=== PATIENT | female | born 1985 | race Caucasian/White ===

== ENCOUNTER → 2022-02-17 | Outpatient (CLI) | payer OTHER ==
[~2022-02-17] MED LIST: ACET325 PO; ACET500 PO; ALBU90OI6; ALBU90OI6 INH; ALPR.5 PO; BCP'S; BIRTH CONTROL PILL; CIPR500 PO; CRUTCH4 USE; DIAZ5 PO; DIPATR PO; HYDACE5; HYDACE5 PO; HYDR1TAB94 PO; IBUP200 PO; IBUP800 PO; METO10 PO; NAPR500; NAPR500 PO; OMEP20ER PO; OMEP40CA12 PO; ONDA4 PO; ONDA4ODT MM; OXYACE5T PO; PENVK250 PO; PENVK500 PO; PROM25 PO; PYRIDIUM; Prozac20 MG; RANI150 PO; RXHYDACE PO; RXPROM25 PO; SULTRIDS PO; TOBR.3OPSO OP; YAZ; Yasmin 28 Tabl1 EACH PO; [UNRECOGNIZED DRUG - OTHER] PO; [UNRECOGNIZED DRUG - REMARK]
== END ==
LOC: LAB 15:10 → LAB SHORT 15:10
DX: N39.0 Urinary tract infection, site not specified (principal)
CPT/HCPCS: 87086

== ENCOUNTER → 2022-03-04 | Outpatient (CLI) | payer OTHER ==
[2022-03-07 00:11] LABS: CHLAMYDIA TRACHOMATIS, NAA Negative (Negative)
== END ==
LOC: LAB 14:30 → LAB SHORT 14:30
PROVIDERS: Student in an Organized Health Care Education/Training Program
DX: Z12.4 Encounter for screening for malignant neoplasm of cervix (principal); Z20.2 Contact with and (suspected) exposure to infections with a predominantly sexual mode of transmission
CPT/HCPCS: 87491; 87591; G0123

== ENCOUNTER → 2022-06-03 | Outpatient (CLI) | payer OTHER ==
[2022-06-03 11:55] LABS: BASOPHILS ABSOLUTE AUTO 0.02 K/mm3 (0.00-0.23); BASOPHILS PERCENT AUTO 0 % (0-2); EOSINOPHILS PERCENT AUTO 0 % (0-6); Hemoglobin 14.7 g/dL (11.5-16.0); IMMATURE GRAN ABSOLUTE AUTO 0.02 K/mm3 (0.00-0.10); IMMATURE GRAN PERCENT AUTO 0 % (0-1); LYMPHOCYTES ABSOLUTE AUTO 1.26 K/mm3 (0.84-5.20); LYMPHOCYTES PERCENT AUTO 16 % (21-46); MONOCYTES ABSOLUTE AUTO 0.44 K/mm3 (0.16-1.47); MONOCYTES PERCENT AUTO 6 % (4-13); Mean Corpuscular HGB 32.3 pg (26.0-34.0); Mean Corpuscular Volume 92 fL (80-100); Mean Platelet Volume 9.8 fL (9.1-12.4); NEUTROPHILS ABSOLUTE AUTO 5.95 K/mm3 (1.96-9.15); NEUTROPHILS PERCENT AUTO 77 % (41-73); Platelet Count 352 K/mm3 (150-400); RDW Standard Deviation 43.8 fL (35.1-46.3); Red Blood Cell Count 4.55 M/mm3 (3.80-5.20); White Blood Cell Count 7.69 K/mm3 (4.00-11.30)
[2022-06-03 12:10] LABS: Albumin, Blood 3.9 g/dL (3.4-5.0); Albumin/Globulin Ratio 0.9 (0.8-1.8); Bilirubin, Total 0.3 mg/dL (0.1-1.0); Bun/Creatinine Ratio 13.9 (12.0-20.0); Calcium, Blood 8.7 mg/dL (8.5-10.1); Creatinine, Blood 0.72 mg/dL (0.40-1.00); Globulin, Blood 4.4 g/dL (2.2-4.0); Potassium, Blood 3.7 mmol/L (3.5-5.5); Total Protein, Blood 8.3 g/dL (6.4-8.2)
== END | disposition home or self-care (01) ==
LOC: LAB 11:50 → LAB SHORT 11:50
PROVIDERS: Physician Assistant Medical
DX: R11.2 Nausea with vomiting, unspecified (principal); R19.7 Diarrhea, unspecified
CPT/HCPCS: 80053; 85025

== ENCOUNTER 2024-04-30 11:10 | Day surgery (SDC) | payer OTHER ==
[~2024-04-30] VITALS: Ht 170.2 cm; Wt 102.2 kg
[~2024-04-30 11:10] MED LIST changes: +Adipex-P37.5 M1 PO; +FAMO20 PO; +LOPERAMIDE212 PO; +PROM12.5S PR; +QUET100 PO
[2024-04-30] MEDS ORDERED: Lactated Ringer's 1,000 ML IV SCH (11:30)
[2024-04-30 12:03] VITALS: BP 124/85
--- NOTE | 2024-04-30 12:46 | NUR ---
Ambulatory in Day SurgeryPre-Op teaching done. Pt verbalizes understanding. History, Chart, Medications and Allergies reviewed before start of procedure.Patient States Post-Procedure ride home has been arranged. PT HAD WATER AT 1115 AND UNABLE TO VOID FOR PREG.TEST. PT VERBALLY AND EMOTIONALLY UPSET.
--- NOTE | 2024-04-30 12:47 | NUR ---
SERUM HCG DRAWN W/ IV START.
[2024-04-30] MEDS ORDERED: propofoL 40 ML IV ONE (13:24)
[2024-04-30] MEDS ORDERED: propofoL 20 ML IV ONE (13:33)
--- NOTE | 2024-04-30 13:52 | NUR ---
04/30/24 [address] ARAYA; SEE ANESTHESIA RECORDS.
[2024-04-30 13:53] VITALS: BP 129/71
--- NOTE | 2024-04-30 16:34 | NUR ---
Discharge instructions reviewed with patient. Patient verbalizes understanding. Copy given to patient to take home. ALL BELONGINGS RETURNED TO PT INCLUDING CELL PHONE. SPOUSE HAD PURSE. PT TOLERATED WATER WELL. NO PAIN OR NAUSEA REPORTED. PT REPORTS "BEING READY TO GO HOME". Discharged via wheelchair to private car for ride home WITH SPOUSE.
== END 2024-04-30 23:00 | disposition home or self-care (01) ==
LOC: ORSCMMR 11:10 → ORD 12:45 → ORSCMMR 23:00
PROVIDERS: Surgery
PROC: 0DB98ZX Excision of Duodenum, Via Natural or Artificial Opening Endoscopic, Diagnostic (ICD-10-PCS; principal; 2024-04-30 12:45)
PROC: 0DB78ZX Excision of Stomach, Pylorus, Via Natural or Artificial Opening Endoscopic, Diagnostic (ICD-10-PCS; principal; 2024-04-30 12:45)
DX: K21.9 Gastro-esophageal reflux disease without esophagitis (principal); K44.9 Diaphragmatic hernia without obstruction or gangrene; J45.909 Unspecified asthma, uncomplicated; F17.210 Nicotine dependence, cigarettes, uncomplicated; E66.9 Obesity, unspecified; Z68.35 Body mass index [BMI] 35.0-35.9, adult; F90.9 Attention-deficit hyperactivity disorder, unspecified type; F41.9 Anxiety disorder, unspecified; Z79.899 Other long term (current) drug therapy
CPT/HCPCS: 84703; 88305; 88341; 88342; J2704; J7120